=== PATIENT | male | born 1990 | race Two or more races ===

== ENCOUNTER 2016-09-18 12:14 | Inpatient (IN) | payer MEDICAID ==
[~2016-09-18] VITALS: Ht 157.5 cm; Wt 65.8 kg
--- NOTE | 2016-09-18 12:20 | NUR ---
[facility] to ER; no acute distress; c/o right ankle pain.
--- NOTE | 2016-09-18 12:21 | NUR ---
+ admits to have been drinking alcohol
--- NOTE | 2016-09-18 12:37 | NUR ---
PT TO RADIOLOGY FOR HEAD AND FACIAL CT SCAN VIA [facility].
[2016-09-18] MEDS ORDERED: ACETAMINOPHEN 325 MG TABLET ONE (12:50)
[2016-09-18] MEDS ORDERED: ACETAMINOPHEN 325 MG TABLET PO ONE (13:00)
[2016-09-18 13:48] LABS: BASOPHILS # (AUTO) 0.1 /CMM (0.0-0.2); BASOPHILS % (AUTO) 0.9 % (0.0-2.0); EOSINOPHILS # (AUTO) 0.2 /CMM (0.0-0.7); EOSINOPHILS % (AUTO) 2.3 % (0.0-6.0); HEMATOCRIT 41 % (39-51); HEMOGLOBIN 13.7 g/dL (13.5-17.5); LYMPHOCYTES # (AUTO) 2.3 /CMM (0.8-4.8); LYMPHOCYTES % (AUTO) 34.9 % (20.0-44.0); MEAN CORPUSCULAR HEMOGLOBIN 31 PG (26.0-33.0); MEAN CORPUSCULAR HGB CONC 33 g/dl (31.0-36.0); MEAN CORPUSCULAR VOLUME 94 fL (80-96); MONOCYTES # (AUTO) 0.7 /CMM (0.1-1.30); NEUTROPHILS # (AUTO) 3.3 /CMM (1.8-8.9); NEUTROPHILS % (AUTO) 50.9 % (43.0-81.0); PLATELET COUNT (AUTO) 243 /CMM (150-450); RDW COEFFICIENT OF VARIATION 12.9 (11.5-15.0); RED BLOOD CELL COUNT(AUTO) 4.39 MIL/uL (4.5-6.0); WHITE BLOOD COUNT (AUTO) 6.6 K/uL (4.3-11.0)
--- NOTE | 2016-09-18 13:55 | NUR ---
YAN TAMAYO DNP PAGED FOR PANEL ADMISSION
[2016-09-18] MEDS ORDERED: IV NS 0.9% 1,000 ML BAG IV ONE (14:00)
[2016-09-18 14:01] LABS: CALCIUM, SERUM 8.1 mg/dL (8.5-10.1); CARBON DIOXIDE 27 mmol/L (21-32); CHLORIDE 103 mmol/L (98-107); CREATININE 0.7 mg/dL (0.6-1.3); GLUCOSE 96 mg/dL (74-106); POTASSIUM 4.4 mmol/L (3.5-5.1); SODIUM SERUM 136 mmol/L (136-145); UREA NITROGEN, BLOOD 11 mg/dL (7-18)
--- NOTE | 2016-09-18 14:04 | NUR ---
PATIENT ASSIGNED TELE 116-1
[2016-09-18 14:07] LABS: ACETAMINOPHEN 0 ug/ml (10-30); ALANINE AMINOTRANSFERASE 59 U/L (12-78); ALBUMIN 3.4 g/dL (3.4-5.0); ALCOHOL, BLOOD < 3 mg/dL (0-0); ALKALINE PHOSPHATASE 69 U/L (46-116); ASPARTATE AMINOTRANSFERASE 54 U/L (15-37); BILIRUBIN,DIRECT 0.2 mg/dL (0.0-0.2); SALICYLATE 1.6 mg/dL (2.8-20.0); TOTAL PROTEIN, SERUM 7.4 g/dL (6.4-8.2)
[2016-09-18 14:10] LABS: INR 1.02 (0.87-1.13); PROTHROMBIN TIME 10.6 SECS (9.5-12.7)
[2016-09-18 14:14] LABS: APPEARANCE,URINE Clear (CLEAR); BILIRUBIN,URINE SMALL (NEGATIVE); BLOOD, URINE Moderate Ery/uL (NEGATIVE); COLOR,URINE Amber (YELLOW); KETONES,URINE Negative (NEGATIVE); LEUKOCYTE ESTERASE ,URINE Negative (NEGATIVE); NITRITE, URINE Negative (NEGATIVE); PH,URINE 5.5 (5.0-8.0); PROTEIN,URINE 30 mg/dl (NEGATIVE); UGLUCOSE Negative (NEGATIVE)
[2016-09-18 14:28] LABS: BACTERIA,URINE Moderate /HPF (None Seen); SQUAMOUS EPITHELIAL CELL,UR Rare /HPF (None Seen)
--- NOTE | 2016-09-18 15:05 | NUR ---
report given to prince. pt joseyiimaninder transfer to floor.
--- NOTE | 2016-09-18 15:30 | NUR ---
RN ADMITTING NOTES: [facility]'D [facility] ACCOMPAN[facility] BY EMPLOYEE COMMUNICATIONS COORDINATOR. PT ADMITTED AT ROOM 115/1. PT IS LETHARGIC, AROUSABLE BY TOUCH. PLACED ON TELEMONITOR, SR W/ HR 67. ON ROOM AIR, SATURATING 98%. HAS RFA G18, SL, FLUSHED, PATENT & INTACT W/ NO S/SX OF INFECTION/ INFILTRATION. WOUND PICTURES DONE AND CONSULT ORDERED. BELONGING LIST DONE BY EMPLOYEE COMMUNICATIONS COORDINATOR. PROVIDED COMFORT & SAFETY MEASURES. BED KEPT LOW & IN LOCKED POS. CALL LIGHT PLACED W/IN REACH. ANTICIPATED NEEDS. PER DR. YAN MENA TO START REGULAR DIET ONCE FULLY AWAKE. WILL CONTINUE TO MONITOR.
[2016-09-18 16:00] VITALS: BP 90/62
[2016-09-18] MEDS ORDERED: Z GUARD REMEDY 2 OZ OINT TP PRN (18:30)
[2016-09-18] MEDS ORDERED: ONDANSETRON HCL/PF 4 MG/2 ML VIAL IVP PRN (18:30)
[2016-09-18] MEDS ORDERED: LORAZEPAM 1 MG TABLET PO PRN (18:30)
[2016-09-18] MEDS ORDERED: ACETAMINOPHEN 325 MG TABLET PO PRN (18:30)
[2016-09-18] MEDS: IV NS 0.9% 1,000 ML IV PRN (18:47)
--- NOTE | 2016-09-18 19:11 | NUR ---
RN CLOSING NOTES: NO ACUTE CHANGES NOTED W/IN SHIFT. PT STILL SLEEPING, NOT IN ANY DISTRESS. RFA G18 KEPT PATENT & INTACT W/ NS 1L X 75 CC/HR INFUSING WELL. KEPT WELL RESTED. CALL LIGHT PLACED W/IN REACH. BED KEPT LOW & IN LOCKED POS. ENDORSED TO PM RN FOR [place].
--- NOTE | 2016-09-18 19:40 | NUR ---
CREATIVE TECHNOLOGIST NOTE: PATIENT RESTING IN BED, NO ACUTE DISTRESS NOTED. BREATHING EVEN AND UNLABORED, NO SOB NOTED. IV TO RFA IN PLACE, INFUSING NS AT 75 ML/HR. BED LOCKED AND IN LOWEST POSITION, CALL LIGHT IN REACH. WILL CONTINUE TO MONITOR.
[2016-09-18 20:00] VITALS: BP 100/54
[2016-09-18 20:10] VITALS: BP 100/54
[2016-09-19] VITALS (10 sets, daily range): BP systolic 99–110; BP diastolic 55–60
--- NOTE | 2016-09-19 00:15 | NUR ---
MIXER MACHINE FEEDER NOTE: PATIENT AWAKE AND REQUESTING TO EAT, SNACKS PROVIDED AND PATIENT ABLE TO EAT WITHOUT COMPLICATIONS. WILL CONTINUE TO MONITOR.
--- NOTE | 2016-09-19 04:15 | NUR ---
ADOBE DEVELOPER NOTE: PATIENT REFUSES TO BE CLEANED OR GIVEN BED BATH. GOWN CHANGED. WILL CONTINUE TO MONITOR.
--- NOTE | 2016-09-19 06:10 | NUR ---
ROTARY SWAGING MACHINE OPERATOR NOTE: PATIENT RESTING IN BED, NO ACUTE DISTRESS NOTED. BREATHING EVEN AND UNLABORED, NO SOB NOTED. TELE READING SR 70. IV TO RFA IN PLACE, INFUSING NS AT 75 ML/HR. BED LOCKED AND IN LOWEST POSITION, CALL LIGHT IN REACH. WILL ENDORSE TO DAY NURSE TO CONTINUE WITH PLAN OF CARE.
[2016-09-19 06:35] LABS: BASOPHILS % (AUTO) 0.5 % (0.0-2.0); EOSINOPHILS # (AUTO) 0.1 /CMM (0.0-0.7); EOSINOPHILS % (AUTO) 2.5 % (0.0-6.0); HEMATOCRIT 40 % (39-51); HEMOGLOBIN 13.4 g/dL (13.5-17.5); LYMPHOCYTES # (AUTO) 1.8 /CMM (0.8-4.8); LYMPHOCYTES % (AUTO) 36.4 % (20.0-44.0); MEAN CORPUSCULAR HEMOGLOBIN 32 PG (26.0-33.0); MEAN CORPUSCULAR HGB CONC 34 g/dl (31.0-36.0); MEAN CORPUSCULAR VOLUME 95 fL (80-96); MONOCYTES # (AUTO) 0.5 /CMM (0.1-1.30); MONOCYTES % (AUTO) 9.3 % (2.0-12.0); NEUTROPHILS # (AUTO) 2.6 /CMM (1.8-8.9); NEUTROPHILS % (AUTO) 51.3 % (43.0-81.0); PLATELET COUNT (AUTO) 252 /CMM (150-450); RDW COEFFICIENT OF VARIATION 13.2 (11.5-15.0); RED BLOOD CELL COUNT(AUTO) 4.18 MIL/uL (4.5-6.0)
[2016-09-19] MEDS: IV NS 0.9% 1,000 ML IV PRN (06:50)
[2016-09-19 06:53] LABS: ALBUMIN 2.9 g/dL (3.4-5.0); BILIRUBIN,TOTAL 0.9 mg/dL (0.2-1.0); CALCIUM, SERUM 7.5 mg/dL (8.5-10.1); CREATININE 0.6 mg/dL (0.6-1.3); MAGNESIUM 2.3 mg/dL (1.8-2.4); PHOSPHORUS 3.2 mg/dL (2.5-4.9); POTASSIUM 3.2 mmol/L (3.5-5.1); TOTAL PROTEIN, SERUM 6.6 g/dL (6.4-8.2)
[2016-09-19 06:59] LABS: THYROID STIMULATING HORMONE 0.295 uIU/mL (0.358-3.74)
[2016-09-19] MEDS ORDERED: PANTOPRAZOLE 40 MG TABLET.DR PO SCH ×2 (07:30→11:13)
[2016-09-19] MEDS ORDERED: IV NS 0.9% 1,000 ML IV PRN (11:00)
[2016-09-19] MEDS ORDERED: ONDANSETRON HCL/PF 4 MG/2 ML VIAL IVP PRN (11:00)
[2016-09-19] MEDS ORDERED: LORAZEPAM 1 MG TABLET PO PRN (11:00)
[2016-09-19] MEDS ORDERED: ACETAMINOPHEN 325 MG TABLET PO PRN (11:00)
[2016-09-19] MEDS ORDERED: Z GUARD REMEDY 2 OZ OINT TP PRN (11:00)
[2016-09-19] MEDS ORDERED: HYDROCODONE/APAP 10/325MG 1 EA TABLET PO PRN (13:00)
[2016-09-19] MEDS: POTASSIUM CHLORIDE 20 MEQ TAB.PRT.SR PO SCH ×2 (13:43→13:45)
--- NOTE | 2016-09-19 16:37 | NUR ---
pt received in bed. pleasant and not in pain. Head to toe assessment given. Refer to documentation. Pain reported in right ankle. [place] given PRN. Will continue to monitor. Pt to be discharged after he eats dinner. Discharge instructions provided.
--- NOTE | 2016-09-19 19:00 | NUR ---
MS NURSE , discharge instructions given to pt, verbalized understanding. ID bands removed, personal belongings retunred to pt, inventory log signed off. Pt left unit by himself without notifying staff with iv site intact. Both Nursing rag room supervisor Leti and GWENDOLYN ( [phone]) left voicemail, regarding pt's leaving without notifying staff.
== END 2016-09-19 18:54 | disposition home or self-care (01) | DRG 115 ==
LOC: ER 12:18 → EDBD 12:18 → ER 15:23 → TELE1 15:33 → MEDSG1 09-19 10:31
PROVIDERS: ADMIT Nurse Practitioner Acute Care; ATTEND Nurse Practitioner Acute Care
DX: S02.2XXA Fracture of nasal bones, initial encounter for closed fracture (principal); G92 Toxic encephalopathy; F17.210 Nicotine dependence, cigarettes, uncomplicated; Z86.19 Personal history of other infectious and parasitic diseases; F19.90 Other psychoactive substance use, unspecified, uncomplicated; Z59.0 Homelessness; W19.XXXA Unspecified fall, initial encounter; Y93.9 Activity, unspecified; Y92.9 Unspecified place or not applicable; S05.92XA Unspecified injury of left eye and orbit, initial encounter; S05.91XA Unspecified injury of right eye and orbit, initial encounter
CPT/HCPCS: 36415; 70450-TC; 70486-TC; 73630-TC; 80048-TC; 80053-TC; 80061-TC; 80076-TC; 80305; 81000-TC; 83735-TC; 84100-TC; 84443-TC; 85025-TC; 85730-TC; 87081-TC; 87086-TC; A4606; G0480; J7030; Z7610